=== PATIENT | female | born 1975 | race Two or more races ===

== ENCOUNTER 2021-04-16 00:02 | Emergency (ER) | payer MEDICAID, OTHER ==
[~2021-04-16] VITALS: Ht 167.6 cm; Wt 101.2 kg
[2021-04-16 00:16] VITALS: BP 148/92
[2021-04-16] MEDS ORDERED: KETOROLAC TROMETH 30 MG/ML 1ML VIAL IM ONE (00:45)
[2021-04-16] MEDS ORDERED: IBUP800T27 PO (01:13)
== END 2021-04-16 01:40 | disposition home or self-care (01) ==
LOC: ER 00:02
DX: S51.851A Open bite of right forearm, initial encounter (principal); L83 Acanthosis nigricans; W54.0XXA Bitten by dog, initial encounter; Y93.89 Activity, other specified; Y92.89 Other specified places as the place of occurrence of the external cause; Y99.8 Other external cause status
CPT/HCPCS: 73090; 96372; 99283; J1885

== ENCOUNTER 2023-11-27 22:25 | Emergency (ER) | payer MEDICAID, OTHER ==
[~2023-11-27] VITALS: Ht 162.6 cm; Wt 128.0 kg
[~2023-11-27 22:25] MED LIST: IBUP-1456 PO
[2023-11-28 00:29] VITALS: BP 132/71; TEMP 98.3
[2023-11-28 00:30] VITALS: PULSE 85; RESP 18; O2SAT 98
[2023-11-28] MEDS: KETOROLAC TROMETH 60MG/2ML VIAL IM ONE (01:18)
== END 2023-11-28 02:00 | disposition home or self-care (01) ==
LOC: ER 22:25
DX: S01.21XA Laceration without foreign body of nose, initial encounter (principal); X58.XXXA Exposure to other specified factors, initial encounter; Y93.89 Activity, other specified; Y92.89 Other specified places as the place of occurrence of the external cause; Y99.8 Other external cause status
CPT/HCPCS: 70140; 96372; 99283; J1885